=== PATIENT | female | born 1990 | race African-American/Black ===

== ENCOUNTER 2017-01-14 00:49 | Emergency (ER) | payer OTHER ==
--- NOTE | ~2017-01-14 | CR72 ---
[facility]. [facility] A Service of [facility] & [facility] RADIOLOGY TEXT RESULTS PATIENT: ENA VELIZ LOCATION: SED : 86 UNIT #: [id number] AGE: [address]: Oren Lepe MD SEX: F ORDER DR: [id number] [place] [id number] E MR#: [id number] Acc #: [id number] NAME: ENA VELIZ : 1990 SEX: F STUDY DATE/TIME: 01/14/2017 1:14 UNIT: SED ROOM: STUDY DESCRIPTION: CR Chest Single View Portable Attending Physician: Oren Lepe M.D. Ordering Physician: Oren Lepe M.D. Primary Care Physician: Primary Care Physician No MEDICAL IMAGING REPORT This report is preliminary unless electronic signature is present. EXAM Portable chest INDICATIONS Shortness of air today. PROCEDURE Frontal view chest. COMPARISON None FINDINGS Heart size normal. Lungs are clear. No pleural fluid. No pneumothorax. IMPRESSION No active process. Dictated by... Dg Yuan M.D. THIS IS AN ELECTRONICALLY VERIFIED REPORT Dg Yuan M.D. at 01/14/2017 9:52 PM TANISHA/maxim TD: 01/14/2017 12:07 JOB #: [id number] MEDICAL IMAGING REPORT Page 1 of 1
[~2017-01-14 00:49] MED LIST: ALBUTEROL20 ml INH
[2017-01-14] MEDS ORDERED: ALBUTEROL17 GM INH (01:03)
[2017-01-14] MEDS ORDERED: ALBUTEROL2.5 MG/3 M INH (01:04)
== END 2017-01-14 02:34 | disposition home or self-care (01) ==
LOC: SED 00:49
DX: J20.9 Acute bronchitis, unspecified (principal); R11.10 Vomiting, unspecified; J45.909 Unspecified asthma, uncomplicated; Z90.710 Acquired absence of both cervix and uterus; Z88.8 Allergy status to other drugs, medicaments and biological substances
CPT/HCPCS: 71010; 94640; 99285

== ENCOUNTER 2017-03-10 12:47 | Emergency (ER) | payer OTHER ==
[~2017-03-10] VITALS: Ht 154.9 cm; Wt 61.2 kg
[~2017-03-10 12:47] MED LIST changes: +ALBUTEROL17 GM INH; +ALBUTEROL2.5 MG/3 M INH
== END 2017-03-10 14:11 | disposition home or self-care (01) ==
LOC: CED 12:47 → CFTX 12:47
DX: J45.901 Unspecified asthma with (acute) exacerbation (principal); I10 Essential (primary) hypertension; Z90.49 Acquired absence of other specified parts of digestive tract; Z88.8 Allergy status to other drugs, medicaments and biological substances; Z79.899 Other long term (current) drug therapy
CPT/HCPCS: 94640; 96374; 99284; J2930